=== PATIENT | female | born 1955 | race Caucasian/White ===

== ENCOUNTER → 2018-03-20 | Outpatient (CLI) | payer OTHER ==
[~2018-03-20] MED LIST: ALTACE10 M1 PO; BP med; Cholesterol med; HYDROCHLOROTHIA25 M1 PO; LESCOL40 MG PO; MECLIZINE HCL12.5 MG PO; MELOXICAM7.5 MG PO; MULTIVITAMINS; VITAMIN B-1100 M1 PO; water pill
== END ==
LOC: M.RAD 14:20
DX: Z12.31 Encounter for screening mammogram for malignant neoplasm of breast (principal)

== ENCOUNTER → 2019-05-05 | Outpatient (CLI) | payer MEDICARE | LOC: M.RAD 14:46 | DX: Z12.31 Encounter for screening mammogram for malignant neoplasm of breast (principal) ==

== ENCOUNTER → 2020-09-12 | Outpatient (CLI) | payer MEDICARE | LOC: M.RAD 13:07 | PROVIDERS: ATTEND Internal Medicine | DX: Z12.31 Encounter for screening mammogram for malignant neoplasm of breast (principal); N64.89 Other specified disorders of breast ==